=== PATIENT | male | born 1965 | race Caucasian/White ===

== ENCOUNTER 2017-01-20 14:01 | Outpatient (CLI) ==
[2016-03-17 17:27] VITALS: BMI 34.3
[2017-01-20 17:27] LABS: BASOPHILS % (AUTO) 0.5 % (0.0-3.0); EOSINOPHILS # (AUTO) 0.1 K/ul (0.0-0.7); EOSINOPHILS % (AUTO) 2.2 % (0.0-7.0); HEMATOCRIT 43.9 % (42.0-52.0); HEMOGLOBIN 15.7 g/dl (14.0-18.0); IMMATURE GRANULOCYTE % (AUTO) 0.3 % (0.0-5.0); LYMPHOCYTES # (AUTO) 2.3 K/uL (0.60-3.4); LYMPHOCYTES % (AUTO) 35.9 (10.0-50.0); MEAN CORPUSCULAR HEMOGLOBIN 31.6 pg (27.0-31.0); MEAN CORPUSCULAR HGB CONC 35.8 (31.8-35.4); MEAN CORPUSCULAR VOLUME 88.3 fl (80.0-94.0); MONOCYTES # (AUTO) 0.5 K/uL (0.4-2.0); MONOCYTES % (AUTO) 7.1 (0-10); NEUTROPHILS # (AUTO) 3.4 K/ul (2.0-6.9); PLATELET COUNT 180 10^3/uL (140-440); RED BLOOD COUNT 4.97 10^6/ul (4.70-6.10); WHITE BLOOD COUNT 6.37 K/ul (4.2-10.2)
[2017-01-20 17:51] LABS: ALBUMIN 3.9 g/dL (3.4-5.0); ALBUMIN/GLOBULIN RATIO 1.34; ANION GAP 12.3; BILIRUBIN,TOTAL 0.73 mg/dL (0.00-1.20); BUN/CREATININE RATIO 10.84; CALCIUM 9.3 mg/dL (8.2-10.2); CHOL/HDL RATIO 5.6 (4.5-6.4); CREATININE 0.83 mg/dL (0.60-1.10); POTASSIUM 3.3 mmol/L (3.5-5.1); TOTAL PROTEIN 6.8 g/dL (6.4-8.2)
== END 2017-01-20 14:02 | disposition home or self-care (01) ==
LOC: LAB 14:01
PROVIDERS: ATTEND Nurse Practitioner Family
DX: E78.5 Hyperlipidemia, unspecified (principal); K21.9 Gastro-esophageal reflux disease without esophagitis; Z12.5 Encounter for screening for malignant neoplasm of prostate; Z86.011 Personal history of benign neoplasm of the brain
CPT/HCPCS: 36415; 80053; 80061; 85025

== ENCOUNTER 2017-01-23 13:38 | Outpatient (CLI) ==
[2016-03-17 17:27] VITALS: BMI 34.3
--- NOTE | 2017-01-23 16:15 | MRI ---
EXAM: MRI brain without and with IV contrast. DATE: 01/23/2017. HISTORY: Personal history of benign brain neoplasm. TECHNIQUE: Sagittal T1W postcontrast, axial T2W, axial FLAIR, axial T1W pre and postcontrast, axial DWI, coronal T1W postcontrast, and coronal T2W GRE sequences of the brain were obtained using 1.5 T esla magnet. CONTRAST: Omniscan - 20 ml IV. COMPARISON: MRI brain [address] head 05/18/2015. FINDINGS: The lateral ventricles, temporal tips, third ventricle remained disproportionally large c ompared to the size and most cerebral sulci. Transverse dimension across both lateral ventricles is 4.3 cm. Transverse dimension across the third ventricle is 7.3 mm. Left temporal tip is approxima tely 1.19 x 2.6 cm. No midline shift, herniation or abnormal extra-axial fluid collection is appare nt. A region of encephalomalacia in the anterior inferior aspect of the left temporal lobe and left pterional craniotomy defect suggests previous tumor resection. No acute infarct, hemorrhage or enh ancing intra-axial neoplasm is identified. A T2W/T1W intermediate signal, avidly enhancing, 6.4 x 2 4 x 16 mm focus observed along the dura anterior to the left internal auditory canal is essentially unchanged from October 2015. Calcifications with susceptibility artifact are identified adjacent t o the left petrous apex, along the falx tentorium. Minimal T2W/FLAIR hyperintensity is observed in the white matter abutting each lateral ventricle. Small number of 2-7 mm, T2W/FLAIR bright, non-enh ancing foci are scattered in the meyers radiata, centrum semiovale and subcortical white matter bila terally. The bazzi - white matter differentiation is normal. T2W GRE dark foci along the falx cereb ri anteriorly corresponds with benign calcifications on previous CT scan. There also benign dural c alcifications posterosuperior to the parietal lobes. No migration or diverticulation abnormality is identified. Left hippocampal head is slightly smaller than the right, and has mildly increased IR s ignal compared to the right. The 7th/8th cranial nerve complexes, cerebellopontine angles, brainste m, and visible cervical spinal cord are normal. There is no cerebellar tonsillar ectopia. The pitu itary gland is small in size. Corpus callosum is normal in size and configuration. Flow voids are present in the major intracranial arteries and in the dural venous sinuses. No aneurysm, AVM or dur al venous sinus thrombosis is apparent. No orbit abnormality is identified. Right mastoid air cell s are unremarkable. A few inferior left mastoid air cells have reticular pattern T2W bright signal and others appear opacified with T2W bright, T1W intermediate signal. There is no acute sinusitis. T2W intermediate, IR/T1W bright, non-enhancing 10.3 x 15 mm x 22 mm focus in the midline of the fron prema sinus is unchanged. No neck mass or lymphadenopathy is detected. In addition to the left tempo ral parietal craniotomy defect. There is a old left lateral suboccipital craniectomy defect. No ca lvarial neoplasm or acute fracture is evident. IMPRESSIONS: 1. No acute infarct, hemorrhage, or enhancing neoplasm. 2. Left temporal region surgical changes. Stable, residual meningioma near the left petrous apex / CP angle. 3. Central > peripheral cerebral atrophy vs chronic NPH (in the right clinical setting). 3. Minor supratentorial small vessel disease. 5. Small pituitary gland. No pituitary lesion. 6. Mild left mastoid air cell disease. 7. Possible frontal sinus mucocele.
== END 2017-01-23 13:39 | disposition home or self-care (01) ==
LOC: RAD 13:38
PROVIDERS: ATTEND Nurse Practitioner Family
DX: Z86.011 Personal history of benign neoplasm of the brain (principal)

== ENCOUNTER 2017-03-09 17:45 | Emergency (ER) ==
[2017-03-09 17:51] VITALS: BP 147/101; TEMP 99.1; BMI 33.2
[2017-03-09] MEDS ORDERED: TORADOL IM STA (18:25)
[2017-03-09] MEDS ORDERED: NORCO 10-325 PO STA (18:25)
--- NOTE | 2017-03-09 18:28 | ED.PDOC ---
General ED Provider: Dr. TEA CARMONA Chief Complaint: Extremity Pain/Injury Stated Complaint: left wrist pain Time Seen by Physician: 18:00 Mode of Arrival: Walk-In Information Source: Patient Exam Limitations: No limitations [facility] T[facility] Documentation Reviewed and Agree: Yes Musculoskeletal Complaint Exam - Hand/Wrist Complaint/Exam Location of Pain: Reports: Left, Wrist Mechanism of Injury: Reports: No known trauma Onset/Duration: 12 hrs history of gout with same pain Symptoms Are: Still present Onset of Pain: Reports: Hours Initial Severity: Moderate Current Severity: Moderate Location: Reports: Discrete Character: Reports: Aching Alleviating: Reports: Rest Aggravating: Reports: Movement Associated Signs and Symptoms: Reports: Swelling Related History: Reports: Similar episode Dominant Hand: Right Related Surgical History: Reports: None Hand/Wrist Findings: Present: Swelling Compartment Syndrome Risk Factors: Present: Pain Review of Systems - Review Of Systems Constitutional: Reports: No symptoms Eyes: Reports: No symptoms Ears, Nose, Mouth, Throat: Reports: No symptoms Respiratory: Reports: No symptoms Cardiac: Reports: No symptoms GI: Reports: No symptoms : Reports: No symptoms Musculoskeletal: Reports: Joint pain Skin: Reports: No symptoms Neurological: Reports: No symptoms Endocrine: Reports: No symptoms Hematologic/Lymphatic: Reports: No symptoms All Other Systems: Reviewed and Negative Past Medical History - Past Medical History Previously Healthy: Yes Endocrine: Reports: Other (GOUT-[facility] HX) Cardiovascular: Reports: Hypertension Respiratory: Reports: None Hematological: Reports: None Gastrointestinal: Reports: None Genitourinary: Reports: None Neuro/Psych: Reports: Depression ([facility] HX), Other (trigeminal neuralgia, [facility]X(PETROSAL TUMOR)) Musculoskeletal: Reports: None Cancer: Reports: Other Other Pertinent Past Medical History: 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 Denies : Gastric Bypass ([facility] HX-COLONOSCOPY/POLYPECTOMY) - Family History Family History: Reports: Cancer ([facility] HX-SISTER & MGF), Unknown - Social History Smoking Status: Never smoker Hx Substance Use: No Alcohol Screening: None Physical Exam - Physical Exam Appearance: Well-appearing, No pain distress, Well-nourished Eyes: WAYNE, EOMI, Conjunctiva clear ENT: Ears normal, Nose normal, Oropharynx normal Respiratory: Airway patent, Breath sounds clear, Breath sounds equal, Respirations nonlabored Cardiovascular: RRR, Pulses normal, No rub, No murmur GI/: Soft, Nontender, No masses, Bowel sounds normal, No Organomegaly Musculoskeletal: Normal strength, ROM intact, No edema, No calf tenderness Skin: Warm, Dry, Normal color Neurological: Sensation intact, Motor intact, Reflexes intact, Cranial nerves intact, Alert, Oriented Psychiatric: Affect appropriate, Mood appropriate Critical Care Note - Critical Care Note Total Time (mins): 0 Course - Course Orders, Labs, Meds: Orders Category Date Time Status Hydrocodone Bit/Acetaminophen [[place] 10-325] MEDS 03/09/17 18:25 Stat 1 tab PO ONCE STA Ketorolac Tromethamine [Toradol] MEDS 03/09/17 18:25 Stat 60 mg IM ONCE STA WRIST, LEFT 3 VIEWS Stat RADS 03/09/17 18:24 Ordered Medications Discontinued Medications Generic Name Dose Route Start Last Admin Trade Name Freq PRN Reason Stop Dose Admin Acetaminophen/Hydrocodone Bitart 1 tab 03/09/17 18:25 [place] 10-325 PO 03/09/17 18:26 ONCE STA Ketorolac Tromethamine 60 mg 03/09/17 18:25 Toradol IM 03/09/17 18:26 ONCE STA Vital Signs: Temp Pulse Resp BP Pulse Ox 03/09/17 17:46 99.1 F 76 20 147/101 H 94 L Departure - Departure Time of Disposition: 18:27 Disposition: HOME SELF-CARE Discharge Problem: Gout attack Qualifiers: Gout site: hand Gout etiology: unspecified cause Laterality: left Qualifier Code: (M10.9) Gout, unspecified Instructions: Gout (ED), Low Purine Diet (ED) Condition: Good Pt referred to PMD for follow-up: No Additional Instructions: Please call your Family Physician as soon as possible to schedule a follow-up appointment. Allergies/Adverse Reactions: Allergies nitroglycerin Adverse Reaction (Verified 03/09/17 17:53) Home Medications: Ambulatory Orders Divalproex Sodium [Depakote Er] 500 mg PO BEDTIME #30 04/14/16 Clonazepam 0.5 mg PO TID #90 07/07/16 Haloperidol 2 mg PO BEDTIME #30 07/07/16
--- NOTE | 2017-03-09 19:06 | DI ---
EXAM: LEFT WRIST THREE VIEWS HISTORY: Wrist pain with no known injury. History of gout. FINDINGS / IMPRESSION: No comparison. Mild generalized demineralization is suggested. No joint di slocation or fracture. Soft tissues are grossly within normal limits.
== END 2017-03-09 19:02 | disposition home or self-care (01) ==
LOC: ED 17:45
DX: M10.9 Gout, unspecified (principal)
CPT/HCPCS: 96372; 99283

== ENCOUNTER 2018-03-26 12:09 | Outpatient (CLI) | END 2018-03-26 12:10 | disposition home or self-care (01) | LOC: RHC-LAB 12:09 | PROVIDERS: ATTEND Emergency Medicine | DX: E78.5 Hyperlipidemia, unspecified (principal); I10 Essential (primary) hypertension; K21.9 Gastro-esophageal reflux disease without esophagitis; Z12.5 Encounter for screening for malignant neoplasm of prostate | CPT/HCPCS: 36415; 80053; 80061; 84443; 85025 ==

== ENCOUNTER 2018-10-31 16:15 | Outpatient (CLI) | END 2018-10-31 16:16 | disposition home or self-care (01) | LOC: LAB 16:15 | PROVIDERS: ATTEND Nurse Practitioner Family | DX: I10 Essential (primary) hypertension (principal); E78.5 Hyperlipidemia, unspecified | CPT/HCPCS: 36415; 80053; 80061; 85025 ==

== ENCOUNTER 2019-05-02 10:59 | Outpatient (CLI) | END 2019-05-02 11:00 | disposition home or self-care (01) | LOC: RHC-LAB 10:59 | PROVIDERS: ATTEND Nurse Practitioner Family | DX: E78.5 Hyperlipidemia, unspecified (principal) | CPT/HCPCS: 36415; 80053; 80061 ==